=== PATIENT | male | born 1970 | race African-American/Black ===

== ENCOUNTER 2020-01-29 02:28 | Emergency (ER) | payer OTHER, SELFPAY ==
[2020-01-29 02:29] VITALS: BP 123/78; PULSE 68; RESP 16; TEMP 36.8; O2SAT 100; BMI 35.9
--- NOTE | 2020-01-29 02:33 | PC.NURSE ---
this nurse called and spoke with [facility] to get further information on the pt and the diagnosis behind the antibiotics he is taking. woman who answered the phone stated that she was just a PA and couldnt give me more info on the pt and was unable to access some parts of the pts chart. when asked to speak with a nurse to get further information she stated she was the only person in the building and there wasnt a medical personnel in the building at this time.
--- NOTE | 2020-01-29 03:03 | PC.NURSE ---
Cheng and Mekhi attempted IV on pt. unsuccessful. [address] at bedside now attempting IV access
[2020-01-29 03:23] LABS: Basophils # 0.1 K/mm3 (0-0.2); Basophils % 0.8 % (0.1-2.0); Eosinophils # 0.3 K/mm3 (0.0-0.4); Eosinophils % 2.7 % (0.1-12.0); Hematocrit 44.8 % (42.0-52.0); Hemoglobin 15.7 g/dL (14.1-18.0); Lymphocytes # 2.4 K/mm3 (0.7-4.5); Lymphocytes % 19.2 % (10-50); Mean Corpuscular HGB Conc 35.2 g/dL (31.8-35.4); Mean Corpuscular Hemoglobin 32.4 pg (27.0-31.2); Mean Corpuscular Volume 92.2 fl (80-94); Mean Platelet Volume 8.5 fl (7.4-10.4); Monocytes # 0.8 K/mm3 (0.1-1.0); Monocytes % 6.6 % (1.7-9.3); Neutrophils # 8.9 K/mm3 (1.8-7.8); Neutrophils % 70.7 % (37.0-80.0); Platelet Count 285 K/mm3 (142-424); Red Blood Count 4.85 M/mm3 (4.60-6.20); Red Cell Distribution Width 14.4 % (11.5-17.5); White Blood Count 12.5 K/mm3 (4.8-10.8)
[2020-01-29 03:29] LABS: Alanine Aminotransferase 34 U/L (12-78); Albumin Level 4.3 g/dl (3.5-5.0); Alkaline Phosphatase 65 U/L (38-126); Anion Gap 12.4 mEq/L (5-15); Aspartate Amino Transferase 32 U/L (17-59); Bilirubin,Total 0.4 mg/dl (0.2-1.3); Blood Urea Nitrogen 16 mg/dl (9-20); Calcium 9.7 mg/dl (8.4-10.2); Carbon Dioxide 27 mmol/L (22.0-30.0); Chloride 103 mmol/L (98-107); Creatinine Clearance Estimated 173 mL/min (50-200); Estimated Glomerular Filt Rate 104 ml/min (>60); GFR (African American) 125 ML/MIN (>60); Globulin 4.1 g/dL (1.3-3.2); Glucose 110 mg/dl (74-100); Sodium 137 mmol/L (136-145); Total Protein,Serum 8.4 g/dl (6.3-8.2)
[2020-01-29 03:34] LABS: C-Reactive Protein 13.8 mg/L (0-4)
[2020-01-29 03:45] LABS: Potassium 5.4 mmoL/L (3.5-5.1)
[2020-01-29 03:47] LABS: Strep Scrn Group A (Rapid) Negative (Negative)
[2020-01-29 03:49] LABS: Erythrocyte Sedimentation Rate 16 mm/hr (0-15)
[2020-01-29 03:55] VITALS: BP 112/78; PULSE 71; RESP 18; O2SAT 99
[2020-01-29 04:10] LABS: Microscopic, Urine URINE MICROSCOPIC (MICROSCOPIC)
[2020-01-29 04:16] LABS: Appearance,Urine CLEAR (Clear); Bilirubin,Urine Negative (Negative); Blood, Urine Negative (Negative); Color,Urine YELLOW (Yellow); Glucose,Urine (UA) Negative (Negative); Ketones,Urine Negative (Negative); Leukocyte Esterase,Urine Negative (Negative); Nitrate,Urine Negative (Negative); Protein,Urine Negative (Negative); Specific Gravity, Urine >= 1.030 (1.005-1.030); Urobilinogen,Urine 0.2 EU/dl (0.2)
[2020-01-29 04:20] LABS: Squamous Epithelial Cell,Urine Occasional #/hpf (0-5); WBC,Urine Occasional #/hpf (0-3)
--- NOTE | 2020-01-29 04:44 | [facility].EDURI ---
ED Disposition Clinical Impression: Pharyngitis Qualifiers: Pharyngitis/tonsillitis etiology: unspecified etiology Qualified Code(s): J02.9 - Acute pharyngitis, unspecified Disposition: Home, Self-Care Condition on Discharge: Good Instructions: Sore Throat Additional Instructions: fluids and see pcp for follow up Prescriptions: cephALEXin [Keflex 500mg Cap] 500 mg PO TID #30 cap Prescription Printed predniSONE [Prednisone 20mg Tab] 20 mg PO BID #10 tab Prescription Printed Referrals: PCP,No [Primary Care Provider] - - Critical Care Critical Care Time: No Attestation: On 01/29/20, the high probability of a clinically significant, sudden or life threatening deterioration of the following system(s) required my full and direct attention, intervention and personal management. The time I documented below is in addition to time spent performing reported procedures but includes the following listed in this critical care notation. Medical Decision Making - Medical Records Medical records reviewed: Yes: I reviewed the patient's medical records. - [place] Inquiry Pt receiving controlled substance: No Vital Signs: 01/29/20 02:29 01/29/20 03:55 01/29/20 04:53 Temperature 98.2 F Temperature Source Oral Pulse Rate [Left Radial] 68 71 93 H Respiratory Rate 16 18 18 Blood Pressure [Right Arm] 123/78 112/78 112/64 Blood Pressure Mean [Right Arm] 93 89 80 Blood Pressure Source [Right Arm] Automatic Cuff Blood Pressure Position [Right Arm] Sitting 02 Sat by Pulse Oximetry 100 99 99 Oxygen Delivery Method Room Air Room Air - Lab Data Lab results reviewed: Yes: I reviewed the patient's lab results. Lab Results 01/29/20 03:12: WBC 12.5 H, RBC 4.85, Hgb 15.7, Hct 44.8, MCV 92.2, MCH 32.4 H, MCHC 35.2, RDW 14.4, Plt Count 285, MPV 8.5, Neut % (Auto) 70.7, Lymph % (Auto) 19.2, [place] % (Auto) 6.6, Eos % (Auto) 2.7, Baso % (Auto) 0.8, Neut # (Auto) 8.9 H, Lymph # (Auto) 2.4, [place] # (Auto) 0.8, Eos # (Auto) 0.3, Baso # (Auto) 0.1, ESR 16 H 01/29/20 03:12: Sodium 137, Potassium 5.4 H, Chloride 103, Carbon Dioxide 27, Anion Gap 12.4, BUN 16, Creatinine 0.80, Estimated Creat Clear 173, Estimated GFR 104, Est GFR ( Amer) 125, Glucose 110 H, Calcium 9.7, Total Bilirubin 0.4, AST 32, ALT 34, Alkaline Phosphatase 65, C-Reactive Protein 13.8 H, Total Protein 8.4 H, Albumin 4.3, Globulin 4.1 H, Albumin/Globulin Ratio 1.0 L 01/29/20 03:30: Group A Strep Rapid Negative 01/29/20 03:59: Urine Color Yellow, Urine Appearance Clear, Urine pH 6.0, Ur Specific [place] >= 1.030, Urine Protein Negative, Urine Glucose (UA) Negative, Urine Ketones Negative, Urine Blood Negative, Urine Nitrate Negative, Urine Bilirubin Negative, Urine Urobilinogen 0.2, Ur Leukocyte Esterase Negative, Urine WBC Occasional, Ur Squamous Epith Cells Occasional Result diagrams: 01/29/20 03:12 01/29/20 03:12 Orders (Tests/Meds): ED MEDICATIONS Generic Name Dose Route Start Last Admin Trade Name Freq PRN Reason Stop Dose Admin Sodium Chloride 1,000 mls @ 999 mls/hr 01/29/20 03:00 01/29/20 03:15 Sod Chlor 0.9% 1000ml Bag IV 01/29/20 04:00 999 mls/hr .Q1H1M KEY Administration Sodium Chloride 8 ml 01/29/20 02:52 Sodium Chloride 0.9% 10ml Vial IV 02/28/20 02:51 NEEDED PRN dilute pepcid Discontinued Medications Generic Name Dose Route Start Last Admin Trade Name Freq PRN Reason Stop Dose Admin Diphenhydramine HCl 50 mg 01/29/20 02:52 01/29/20 03:14 Diphenhydramine 50mg/Ml Vial IV 01/29/20 02:53 50 mg ONCE ONE Administration Famotidine 20 mg 01/29/20 02:52 01/29/20 03:14 Famotidine 20mg/2ml Vial IV 01/29/20 02:53 20 mg ONCE ONE Administration Ketorolac Tromethamine 30 mg 01/29/20 02:52 01/29/20 03:14 Ketorolac 30mg/Ml Vial IV 01/29/20 02:53 30 mg ONCE ONE Administration Methylprednisolone Sodium Succinate 125 mg 01/29/20 02:52 01/29/20 03:14 Methylprednisolone Sod Succ
[2020-01-29 04:53] VITALS: BP 112/64; PULSE 93; RESP 18; O2SAT 99
[2020-01-29 05:01] VITALS: BP 112/66; PULSE 79; RESP 18; O2SAT 98
--- NOTE | 2020-01-29 05:09 | PC.NURSE ---
spoke with corona at [facility] and told her pt was ready to be picked up
[2020-01-29 06:19] VITALS: BP 113/84; PULSE 101; RESP 18; O2SAT 96
[2020-01-29 06:24] VITALS: BP 102/58; PULSE 76; RESP 14; TEMP 36.8; O2SAT 99
--- NOTE | 2020-01-29 07:00 | PC.NURSE ---
Pt sitting in bed eating breakfast at this time.
--- NOTE | 2020-01-29 07:16 | PC.NURSE ---
Pt sleeping at this time.
[2020-02-02 13:18] LABS: Neisseria gonorrhoeae, NAA Negative (Negative)
== END 2020-01-29 07:43 | disposition home or self-care (01) ==
PROVIDERS: Emergency Provider Emergency Medicine
DX: J02.9 Acute pharyngitis, unspecified (principal)
CPT/HCPCS: 80053; 81001; 85025; 85651; 86140; 87430; 87491; 87591; 96365; 96367; 96375; 99283